=== PATIENT | female | born 1990 | race African-American/Black ===

== ENCOUNTER 2020-10-13 00:52 | Emergency (ER) | payer OTHER ==
[2020-10-13 03:02] LABS: CORONAVIRUS 2019 SARS-COV-2 NEGATIVE (NEGATIVE); INFLUENZA A NAA NEGATIVE (NEGATIVE)
== END 2020-10-13 04:11 | disposition home or self-care (01) ==
LOC: FER 00:52
PROVIDERS: Student in an Organized Health Care Education/Training Program
DX: B34.9 Viral infection, unspecified (principal); K21.9 Gastro-esophageal reflux disease without esophagitis; Z88.5 Allergy status to narcotic agent; Z88.8 Allergy status to other drugs, medicaments and biological substances; Z20.822 Contact with and (suspected) exposure to COVID-19; Z79.899 Other long term (current) drug therapy
CPT/HCPCS: 99284; Q0164; U0002

== ENCOUNTER 2021-07-26 13:51 | Emergency (ER) | payer OTHER ==
[2021-07-26 15:23] LABS: CORONAVIRUS 2019 SARS-COV-2 NEGATIVE (NEGATIVE); INFLUENZA A NAA NEGATIVE (NEGATIVE)
== END 2021-07-26 16:15 | disposition home or self-care (01) ==
LOC: FER 13:51
PROVIDERS: Internal Medicine
DX: J06.9 Acute upper respiratory infection, unspecified (principal); Z20.822 Contact with and (suspected) exposure to COVID-19; Z88.5 Allergy status to narcotic agent; Z88.8 Allergy status to other drugs, medicaments and biological substances
CPT/HCPCS: 99283; U0002